=== PATIENT | male | born 1965 | race Caucasian/White ===

== ENCOUNTER 2016-11-07 18:35 | Inpatient (IN) | payer MEDICAID, OTHER ==
[2016-11-07] MEDS ORDERED: IPRATROPIUM/ALBUTEROL 3 ML DEYVIAL IH ONE (18:47)
[2016-11-07] MEDS ORDERED: ALBUTEROL 3 ML DEYVIAL IH ONE (18:47)
[2016-11-07] MEDS ORDERED: AZITHROMYCIN 250 MG TAB PO ONE (18:48)
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
[2016-11-07] MEDS ORDERED: NS 1,000 ML IV ONE (20:02)
[2016-11-07 21:01] LABS: % IMMATURE GRANULYOCYTES 0.4 % (0.0-1.1); ABSOLUTE IMMATURE GRANULOCYTES 0.08 10^3/uL (0.00-0.10); ADD DIFF? NO; ADD MORPH? NO; ADD SCAN? NO; ATYPICAL LYMPHOCYTE FLAG 10 (0-99); FRAGMENT RBC FLAG 0 (0-99); HEMATOCRIT 42.2 % (40.0-51.0); HEMOGLOBIN 14.6 g/dL (13.7-17.5); LEFT SHIFT FLG 0 (0-99); LIPEMIA HEMOLYSIS FLAG 90 (0-99); MEAN CELL HEMOGLOBIN 31.4 pg (27.9-34.1); MEAN CELL HEMOGLOBIN CONCENTR. 34.6 g/dL (32.4-36.7); MEAN CELL VOLUME 90.8 fL (81.5-99.8); MEAN PLATELET VOLUME 11.3 fL (8.7-11.7); PLATELET CLUMPS FLAG 10 (0-99); PLATELET COUNT 184 10^3/uL (150-400); RED BLOOD CELL COUNT 4.65 10^6/uL (4.40-6.38); RED CELL DISTRIBUTION WIDTH 13.3 % (11.5-15.2)
[2016-11-07 21:14] LABS: ANION GAP 11 mEq/L (8-16); CALCIUM 10.1 mg/dL (8.5-10.4); CARBON DIOXIDE 24 mEq/l (22-31); CHLORIDE 100 mEq/L (97-110); CREATININE 0.7 mg/dL (0.7-1.3); GLOMERULAR FILTRATION RATE > 60; GLUCOSE 149 mg/dL (70-100); POTASSIUM 4.1 mEq/L (3.5-5.2); SODIUM 135 mEq/L (134-144)
[2016-11-07] MEDS ORDERED: ACETAMINOPHEN 325 MG TAB PO PRN (21:24)
[2016-11-07] MEDS ORDERED: ONDANSETRON 4 MG/2 ML VIAL IVP PRN (21:24)
[2016-11-07] MEDS ORDERED: predniSONE 20 MG TAB PO ONE ×2 (21:25→23:30)
--- NOTE | 2016-11-07 22:06 | GHP ---
DATE OF ADMISSION: 11/07/2016 CHIEF COMPLAINT: Shortness of breath. HISTORY: The patient is a 51-year-old male who has felt short of breath for the last week. He has had a severe cough with green sputum. There has been no fever. He has been wheezing. He has chest pain only with cough, but it is nonpleuritic. He kept thinking he was going to get better, and mamta wolf gave up and sought emergency room this evening. PAST MEDICAL HISTORY: COPD. MEDICATIONS: Please see computer record for full detailed list. ALLERGIES: No known drug allergies. SOCIAL HISTORY: He is a smoker, less than half a pack per day. No alcohol. He smokes marijuana [place]. He is homeless. REVIEW OF SYSTEMS: Complete review of systems obtained. Review of systems negative regarding const itutional, HEENT, GI, pulmonary, cardiovascular, , hematology, skin, musculoskeletal, endocrine, p sych except for positives and negatives as noted in HPI. FAMILY HISTORY: Reviewed, and noncontributory to presenting complaint. PHYSICAL EXAMINATION: GENERAL: Well-developed, well-nourished male, in no acute distress. VITAL S IGNS: Temperature is 37.3, pulse 113, respirations 28, blood pressure 123/80, saturating 83% on corby m air. EYES: Normal conjunctivae. Pupils are equal and reactive to light. ENT: Normal ears and nose. Hearing intact. Normal lips and teeth. Oropharynx moist. NECK: Trachea midline. No thyro megaly. CHEST: Slightly increased respiratory effort. LUNGS: Bilateral wheeze and rales. CARDIO VASCULAR: Regular rate and rhythm. No murmur. No lower extremity edema. ABDOMEN: Soft, nontende r. No hepatosplenomegaly. SKIN: Warm, dry and intact without rash. MUSCULOSKELETAL: No cyanosis or clubbing. Strength 5/5 upper and lower extremities. NEUROLOGIC: Cranial nerves intact. Willa l sensation to light touch. PSYCHIATRIC: Alert and oriented x3. Normal mood and affect. Normal j udgment and insight. Normal memory. LABS: White count 20.49, hematocrit 42.2 and platelets 184. Sodium 135, potassium 4.1, chloride 10 0, bicarb 24, BUN 13, creatinine 0.7, glucose 149. Lactate 1.4. Flu swab is pending. Case was discussed with Dr. Jacob, the emergency room physician. He felt patient needed to come in due to hypoxemia and ongoing respiratory issues. Chest x-ray shows a left lower lobe pneumonia. ASSESSMENT AND PLAN: 1. Pneumonia with sepsis. Will continue Levaquin. His lactate level is low. 2. Chronic obstructive pulmonary disease exacerbation. We will start steroids and nebulizers. 3. Tobacco dependence. Will offer nicotine patch. 4. Acute respiratory failure. He is now stable on oxygen. CODE STATUS: Full. ADMISSION STATUS: 1. Will admit to observation although this may take a couple days depending on clinical course. 2. DVT prophylaxis. He is moderate risk. Will place on subcu Lovenox. /[id number]/MODL
[2016-11-07] MEDS: NS 1,000 ML IV SCH (22:28)
[2016-11-07] MEDS: IPRATROPIUM/ALBUTEROL 3 ML DEYVIAL IH SCH (23:36)
[2016-11-08 06:01] LABS: ADD MORPH? NO; ATYPICAL LYMPHOCYTE FLAG 10 (0-99); FRAGMENT RBC FLAG 0 (0-99); LEFT SHIFT FLG 0 (0-99); LIPEMIA HEMOLYSIS FLAG 90 (0-99)
[2016-11-08] MEDS: IPRATROPIUM/ALBUTEROL 3 ML DEYVIAL IH SCH ×4 (06:15→20:41)
[2016-11-08 06:20] LABS: PLATELET CLUMPS FLAG 300 (0-99)
[2016-11-08 06:25] LABS: ANION GAP 10 mEq/L (8-16); CALCIUM 9.4 mg/dL (8.5-10.4); CARBON DIOXIDE 22 mEq/l (22-31); CHLORIDE 106 mEq/L (97-110); CREATININE 0.6 mg/dL (0.7-1.3); GLOMERULAR FILTRATION RATE > 60; GLUCOSE 126 mg/dL (70-100); POTASSIUM 4.7 mEq/L (3.5-5.2); SODIUM 138 mEq/L (134-144)
[2016-11-08 08:25] LABS: % IMMATURE GRANULYOCYTES 0.5 % (0.0-1.1); ABSOLUTE IMMATURE GRANULOCYTES 0.07 10^3/uL (0.00-0.10); ADD DIFF? NO; ADD MORPH? NO; ADD SCAN? NO; ATYPICAL LYMPHOCYTE FLAG 10 (0-99); FRAGMENT RBC FLAG 0 (0-99); HEMATOCRIT 41.9 % (40.0-51.0); HEMOGLOBIN 14.1 g/dL (13.7-17.5); LEFT SHIFT FLG 0 (0-99); LIPEMIA HEMOLYSIS FLAG 80 (0-99); MEAN CELL HEMOGLOBIN 30.3 pg (27.9-34.1); MEAN CELL HEMOGLOBIN CONCENTR. 33.7 g/dL (32.4-36.7); MEAN CELL VOLUME 89.9 fL (81.5-99.8); MEAN PLATELET VOLUME 11.2 fL (8.7-11.7); PLATELET CLUMPS FLAG 0 (0-99); PLATELET COUNT 192 10^3/uL (150-400); RED BLOOD CELL COUNT 4.66 10^6/uL (4.40-6.38); RED CELL DISTRIBUTION WIDTH 13.4 % (11.5-15.2)
--- NOTE | 2016-11-08 10:13 | HOSPPROG ---
Hospitalist Progress Note Assessment/Plan: DIAGNOSES: -acute hypoxemic respiratory failure -COPD exacerbation -Probable left lower lobe pneumonia, minimal infiltrate on x-ray, cultures pending -Homelessness -Ongoing tobacco abuse PLANS: Continue steroids and bronchodilators Continue current antibiotics SUBJECTIVE: Some decrease in shortness of breath and cough but still got extremely winded just taking a shower. No chest pain OBJECTIVE Vitals reviewed: Stable without fever Exam: alert oriented skin warm dry color ok resps still somewhat labored lungs very diminished breath sounds with some end-expiratory wheeze no rales heart regular abd soft nondistended nontender, bowel sounds present limbs warm, no edema iv site ok Cultures pending at this time Laboratory data: White blood cell count still elevated at 14,000, rest of CBC and Chem panel or stable Objective: Vital Signs Temp Pulse Resp BP Pulse Ox 36.4 C 55 L 18 120/72 95 11/08/16 08:00 11/08/16 09:08 11/08/16 09:08 11/08/16 08:00 11/08/16 09:08 Microbiology 11/08/16 00:40 - Final Sputum, Expectorated Laboratory Results 11/08/16 08:01 11/08/16 04:38 11/07/16 11/08/16 11/09/16 06:59 06:59 06:59 Intake Total 1000 Balance 1000 ICD10 Worksheet Patient Problems: Problems Problem Status Onset Acute bronchitis Acute Pneumonia Acute Abdominal pain Acute Nausea & vomiting Acute
[2016-11-08] MEDS: NICOTINE 7 MG/24 HR PATCH TD SCH (10:56)
[2016-11-08] MEDS: ENOXAPARIN 40 MG/0.4 ML SYR SC SCH (10:58)
[2016-11-08] MEDS: predniSONE 20 MG TAB PO SCH (11:00)
[2016-11-08] MEDS: NS 1,000 ML IV SCH (16:14)
[2016-11-08] MEDS: ZOLPIDEM TARTRATE 5 MG TAB PO PRN (22:52)
[2016-11-09] MEDS: IPRATROPIUM/ALBUTEROL 3 ML DEYVIAL IH SCH ×4 (05:07→22:39)
[2016-11-09] MEDS: NS 1,000 ML IV SCH (06:07)
[2016-11-09] MEDS: ENOXAPARIN 40 MG/0.4 ML SYR SC SCH (08:50)
[2016-11-09] MEDS: predniSONE 20 MG TAB PO SCH (08:51)
[2016-11-09] MEDS: NICOTINE 7 MG/24 HR PATCH TD SCH (08:51)
[2016-11-09] MEDS ORDERED: FLU VACC QS 2016-17(3-64YR)/PF 0.5 ML SYR (FLUARIX QUAD) IM ONE (15:55)
[2016-11-09] MEDS ORDERED: PNEUMOCOCCAL 0.5ML VACCINE VIAL IM ONE (15:55)
--- NOTE | 2016-11-09 16:54 | HOSPPROG ---
Hospitalist Progress Note Assessment/Plan: DIAGNOSES: -acute hypoxemic respiratory failure -COPD exacerbation -Probable left lower lobe pneumonia, minimal infiltrate on x-ray, cultures pending -Homelessness -Ongoing tobacco abuse PLANS: Continue steroids and bronchodilators Continue current antibiotics Continue inpatient care until he is able to be active enough to do well, particularly as he is on the street will not be able to have oxygen SUBJECTIVE: Still very short of breath with minimal activities such as showering. He has not been able to walk as far as out of the room so far. Still with cough but no chest pain No chills OBJECTIVE Vitals reviewed: Stable without fever Exam: alert oriented skin warm dry color ok resps still somewhat labored lungs breath sounds remain very diminished with end-expiratory wheeze no rales heart regular abd soft nondistended nontender, bowel sounds present limbs warm, no edema iv site ok Cultures pending with no growth at this time Objective: Vital Signs Temp Pulse Resp BP Pulse Ox 36.9 C 81 14 120/71 93 11/09/16 15:45 11/09/16 15:57 11/09/16 15:57 11/09/16 15:45 11/09/16 15:57 11/08/16 11/09/16 11/10/16 06:59 06:59 06:59 Intake Total 247 Balance 247 ICD10 Worksheet Patient Problems: Problems Problem Status Onset Acute bronchitis Acute Pneumonia Acute Abdominal pain Acute Nausea & vomiting Acute
[2016-11-09] MEDS: ZOLPIDEM TARTRATE 5 MG TAB PO PRN (23:42)
[2016-11-10] MEDS: IPRATROPIUM/ALBUTEROL 3 ML DEYVIAL IH SCH ×2 (06:00→11:10)
[2016-11-10 08:37] VITALS: BP 137/85; PULSE 83; RESP 18; TEMP 97.8; O2SAT 94
[2016-11-10] MEDS: predniSONE 20 MG TAB PO SCH (09:26)
[2016-11-10] MEDS: NICOTINE 7 MG/24 HR PATCH TD SCH (09:27)
[2016-11-10] MEDS: ENOXAPARIN 40 MG/0.4 ML SYR SC SCH (09:28)
--- NOTE | 2016-11-10 10:13 | PDDCSUM ---
Discharge Summary Discharge Summary: DISCHARGE DIAGNOSES: -acute hypoxemic respiratory failure -COPD exacerbation -Lower respiratory infection without direct evidence of pneumonia -ongoing tobacco abuse HOSPITAL COURSE SUMMARY: This patient who is homeless with known COPD and ongoing cigarette use comes in the hospital with worsening cough shortness of breath and fevers. He had very abnormal lung exam with wheezing rhonchi and prolonged expiration. On exam and chest x-ray there is no evidence of definite pneumonia but was felt to have lower respiratory infection. Was admitted the hospital treated with bronchodilators, steroids, and antibiotics. He responded quite well and on the 3rd day is now ambulating in the hallway without oxygen and doing that reasonably well. He is eating well. He is felt to be stable for discharge. Extensive time was spent during the hospital stay including the day of discharge counseling the patient on smoking cessation, and he is very interested in this. It is recommended the follow up with primary care at [facility] for help with this. He has used nicotine patch here in the hospital and has not smoked here in the hospital. MEDICATION CHANGES: Addition of prednisone 20 mg daily and Levaquin 750 mg daily for 5 more days FOLLOW-UP PLAN: At [facility] in 1-2 weeks Greater than 35 minutes bedside and care coordination time today
== END 2016-11-10 13:04 | disposition home or self-care (01) | DRG 190 ==
LOC: EDUNIT# → INTOOBSV 20:39 → F3E 21:48 → OBSVTOIN 11-08 10:23
PROVIDERS: ADMIT Internal Medicine; ATTEND Internal Medicine
DX: J44.1 Chronic obstructive pulmonary disease with (acute) exacerbation (principal); J96.01 Acute respiratory failure with hypoxia; J22 Unspecified acute lower respiratory infection; F17.210 Nicotine dependence, cigarettes, uncomplicated; Z23 Encounter for immunization; Z59.0 Homelessness
CPT/HCPCS: 96365; G0008; G0009; G0378; J1650; J1956

== ENCOUNTER 2017-09-14 01:05 | Emergency (ER) | payer OTHER, MEDICAID ==
[~2017-09-14 01:05] MED LIST: ALBUTEROL 60 PUFFS/8 GM MDI IH SCH; AZITHROMYCIN 250 MG TAB PO SCH
[2017-09-14] MEDS ORDERED: ALBUTEROL 3 ML DEYVIAL IH ONE (01:11)
--- NOTE | 2017-09-14 01:14 | EDPHY ---
H & P Time Seen by Provider: 09/14/17 01:11 HPI/ROS: Chief Complaint: Cough, difficulty breathing HPI: 52-year-old male who is currently homeless has been having several days of dry cough with difficulty breathing. Patient states that almost yearly in the winter time he gets a bronchitis or pneumonia requiring antibiotics and inhalers. He is not currently have an inhaler. Denies any fevers or chills. Has been having green sputum for the last day. No chest pain. He does smoke. Does not drink alcohol. Does use occasional marijuana. No other drug use. ROS: 10 point Review of Systems is negative except as noted in the HPI. PMH: Pneumonia Social History: Positive smoking, no alcohol, occasional marijuana Family History: non-contributory Physical Exam: Gen: Awake, Alert, No Distress HEENT: Nose: no rhinorrhea Eyes: PERRLA, EOMI Mouth: Moist mucosa Neck: Supple, no JVD Chest: nontender, moderate diffuse expiratory wheezing with diminished breath sounds, no focal rales or rhonchi Heart: S1, S2 normal, no murmur Abd: Soft, non-tender, no guarding Back: no CVA tenderness, no midline tenderness Ext: no edema, non-tender Skin: no rash Neuro: CN II-XII intact, Sensation grossly intact, Strength 5/5 in bilateral upper and lower extremities - Medical/Surgical History Hx Asthma: No Hx Chronic Respiratory Disease: Yes Hx Diabetes: No Hx Cardiac Disease: No Hx Renal Disease: No Hx Cirrhosis: No Hx Alcoholism: No Hx HIV/AIDS: No Hx Splenectomy or Spleen Trauma: No Other PMH: None, recurring bronchitis, broken bones - Social History Smoking Status: Current every day smoker Constitutional: Initial Vital Signs Temperature (C) 36.8 C 09/14/17 01:13 Heart Rate 66 09/14/17 01:13 Respiratory Rate 18 09/14/17 01:13 Blood Pressure 129/92 H 09/14/17 01:13 O2 Sat (%) 96 09/14/17 01:13 O2 Delivery Mode Room Air Allergies/Adverse Reactions: No Known Allergies Allergy (Verified 10/16/15 12:43) Home Medications: Medication Instructions Recorded Albuterol [Proventil Inhaler HFA 1 - 2 puffs IH Q4 PRN #1 mdi 11/10/16 (*)] levOFLOXACIN [levAQUIN (*)] 750 mg PO DAILY AT 10AM #3 tab 11/10/16 predniSONE 20 mg PO DAILY #5 tablet 11/10/16 AZITHROMYCIN [Z-PACK] 250 mg PO DAILY #6 tab 09/14/17 Albuterol [Proventil Inhaler HFA 1 - 2 puffs IH Q4H PRN #1 mdi 09/14/17 (*)] Medical Decision Making - Data Points Medications Given: Discontinued Medications Albuterol (Proventil Neb) 3 ml IH EDNOW ONE Stop: 09/14/17 01:12 Last Admin: 09/14/17 01:15 Dose: 3 ml Azithromycin (Zithromax) 500 mg PO EDNOW ONE PRN Reason: Protocol Stop: 09/14/17 01:28 Last Admin: 09/14/17 01:37 Dose: 500 mg Departure - Departure Disposition: Home, Routine, Self-Care Clinical Impression: Acute bronchitis Condition: Good Instructions: Albuterol (By breathing), Acute Bronchitis (ED) Additional Instructions: Make sure to take her full course of antibiotics. Follow up with your primary care physician in 2-3 days if symptoms are not improving. Return to the emergency department with worsening shortness of breath, worsening cough, uncontrolled fevers or chills, or any other concerns. Referrals: Patient,NotPresent [Unknown] - As per Instructions Prescriptions: Albuterol [Proventil Inhaler HFA (*)] 1 - 2 puffs IH Q4H PRN #1 mdi PRN Reason: Wheezing AZITHROMYCIN [Z-PACK] 250 mg PO DAILY #6 tab
[2017-09-14 01:15] VITALS: RESP 18; TEMP 98.2
[2017-09-14] MEDS ORDERED: AZITHROMYCIN 250 MG TAB PO ONE (01:27)
[2017-09-14] MEDS ORDERED: ALBUTEROL INH PREPACK MDI TAKEHOME ONE (01:27)
[2017-09-14 03:49] VITALS: O2SAT 93
[2017-09-14 06:51] VITALS: BP 126/93; PULSE 80
== END 2017-09-14 06:52 | disposition home or self-care (01) ==
LOC: EDUNIT#
DX: J20.9 Acute bronchitis, unspecified (principal); F17.200 Nicotine dependence, unspecified, uncomplicated
CPT/HCPCS: J7613